=== PATIENT | female | born 1985 | race Asian ===

== ENCOUNTER 2017-01-22 18:51 | Inpatient (IN) | payer OTHER ==
[2017-01-22] MEDS ORDERED: Dinoprostone* 10 MG VAG.SUPP VAGINAL ONE (20:00)
[2017-01-23] MEDS ORDERED: Oxytocin in LR* 20 UNITS/1,000 ML BAG IVPB SCH (09:00)
[2017-01-23 09:04] LABS: Hematocrit 34 % (35-47); Hemoglobin 11.6 g/dl (12.0-16.0); Mean Corpuscular HGB Conc 34 g/dl (31-36); Mean Corpuscular Hemoglobin 31 pg (27-31); Mean Corpuscular Volume 92 fL (80-97); Mean Platelet Volume 11 um3 (7.4-10.4); Red Blood Count 3.73 10^6/ul (4.0-5.4); Red Cell Distribution Width 17 % (10.5-15); White Blood Count 8.2 10^3/ul (3.5-10.8)
[2017-01-23] MEDS ORDERED: OBEPIDURAL* 250 ML ONE (12:20)
[2017-01-23] MEDS ORDERED: Famotidine TAB* 20 MG PO PRN (12:52)
[2017-01-23] MEDS ORDERED: Phenylephrine IV* 40 MCG/ML 10 ML SYRINGE IV PUSH PRN ×2 (12:52)
[2017-01-23] MEDS ORDERED: Sodium Citrate/Citric Acid* 15 ML UDC PO PRN (12:52)
[2017-01-23] MEDS ORDERED: OBEPIDURAL* 250 ML EPIDURAL SCH (13:00)
[2017-01-24] MEDS ORDERED: Glycerin ADULT SUPP PR PRN (01:58)
[2017-01-24] MEDS ORDERED: Acetaminophen TAB* 325 MG PO PRN (01:58)
[2017-01-24] MEDS ORDERED: Oxytocin in LR* 20 UNITS/1,000 ML BAG IVPB SCH (02:00)
[2017-01-24] MEDS: Ibuprofen TAB* 600 MG PO PRN ×3 (03:21→19:34)
[2017-01-24] MEDS: Dibucaine 1% 28.35 GM TUBE PR PRN (03:21)
[2017-01-24] MEDS: Witch Hazel PAD* JAR TOPICAL PRN (03:21)
[2017-01-24] MEDS ORDERED: Simethicone TAB* 80 MG TAB.CHEW PO SCH (08:30)
--- NOTE | 2017-01-24 09:18 | PTEDU ---
Patient Name: MAY GARAY MAY GARAY selected video: BBOB: Nurturing Your Gorgeous \T\Growing Baby by to view on 01/24/2017 at 9:16:16 AM from [email or web address]
[2017-01-24] MEDS: Docusate CAP* 100 MG PO SCH ×3 (09:30→19:34)
--- NOTE | 2017-01-24 09:59 | PTEDU ---
Patient Name: MAY GARAY MAY GARAY selected video: Never Ever Shake a Baby to view on 01/24/2017 at 9:57:51 [id number]
[2017-01-25 06:40] LABS: Hematocrit 25 % (35-47); Hemoglobin 8.4 g/dl (12.0-16.0); Mean Corpuscular HGB Conc 34 g/dl (31-36); Mean Corpuscular Hemoglobin 31 pg (27-31); Mean Corpuscular Volume 92 fL (80-97); Mean Platelet Volume 11 um3 (7.4-10.4); Red Blood Count 2.66 10^6/ul (4.0-5.4); Red Cell Distribution Width 17 % (10.5-15); White Blood Count 9.8 10^3/ul (3.5-10.8)
[2017-01-25] MEDS: Docusate CAP* 100 MG PO SCH ×3 (09:42→20:25)
[2017-01-25] MEDS: Ibuprofen TAB* 600 MG PO PRN ×2 (09:42→16:33)
[2017-01-25] MEDS: Ferrous Gluconate TAB* 324 MG TAB PO SCH ×2 (09:42→20:25)
[2017-01-26 04:18] VITALS: BP 99/61
[2017-01-26] MEDS: Ferrous Gluconate TAB* 324 MG TAB PO SCH (08:43)
[2017-01-26] MEDS: Docusate CAP* 100 MG PO SCH (08:43)
[2017-01-26] MEDS: Ibuprofen TAB* 600 MG PO PRN (09:42)
[2017-01-26] MEDS: Witch Hazel PAD* JAR TOPICAL PRN (09:42)
[2017-01-26] MEDS: Dibucaine 1% 28.35 GM TUBE PR PRN (09:42)
--- NOTE | 2017-01-26 11:52 | PTEDU ---
Patient Name: MAY GARAY MAY GARAY selected video: BBOB: Bonding Through Massage to view on 01/26/2017 at 11:50:17 AM from [email or web address]
== END 2017-01-26 13:06 | disposition home or self-care (01) | DRG 775 ==
LOC: MCHOBOUT 18:51 → MCHOB 19:59
PROVIDERS: ADMIT Midwife; ATTEND Midwife
PROC: 10907ZC Drainage of Amniotic Fluid, Therapeutic from Products of Conception, Via Natural or Artificial Opening (ICD-10-PCS; principal; 2017-01-24)
PROC: 10E0XZZ Delivery of Products of Conception, External Approach (ICD-10-PCS; 2017-01-24)
PROC: 0KQM0ZZ Repair Perineum Muscle, Open Approach (ICD-10-PCS; 2017-01-24)
PROC: 3E0P7VZ Introduction of Hormone into Female Reproductive, Via Natural or Artificial Opening (ICD-10-PCS; 2017-01-24)
PROC: 4A1HXCZ Monitoring of Products of Conception, Cardiac Rate, External Approach (ICD-10-PCS; 2017-01-24)
DX: O48.0 Post-term pregnancy (principal); D64.9 Anemia, unspecified; Z37.0 Single live birth; Z3A.41 41 weeks gestation of pregnancy; O70.1 Second degree perineal laceration during delivery; O90.81 Anemia of the puerperium; O69.1XX0 Labor and delivery complicated by cord around neck, with compression, not applicable or unspecified; O69.2XX0 Labor and delivery complicated by other cord entanglement, with compression, not applicable or unspecified
CPT/HCPCS: 36415; 59200; 85025; 86850; 86900; 86901; A9270-GY